=== PATIENT | female | born 1985 | race Hispanic/Latino ===

== ENCOUNTER 2022-04-30 13:52 | Outpatient (CLI) | payer MEDICAID | END 2022-04-30 13:53 | disposition home or self-care (01) | LOC: BICMAMMO 13:52 | PROVIDERS: ATTEND Nurse Practitioner Family | DX: R22.31 Localized swelling, mass and lump, right upper limb (principal); N64.89 Other specified disorders of breast | CPT/HCPCS: 77066; G0279 ==

== ENCOUNTER 2022-06-15 10:36 | Emergency (ER) | payer MEDICAID, SELFPAY | END 2022-06-15 14:08 | disposition home or self-care (01) | LOC: ERS 10:36 | DX: R51.9 Headache, unspecified (principal) | CPT/HCPCS: 70450 ==